=== PATIENT | female | born 1950 | race Caucasian/White ===

== ENCOUNTER 2023-07-12 07:54 | Outpatient (CLI) | payer MEDICARE, OTHER, SELFPAY ==
--- NOTE | 2023-07-12 08:58 | ECG_ITS ---
SEE SCANNED COPY FOR CONFIRMED REPORT MTDD
[2023-07-12 09:14] LABS: Basophils Absolute Auto 0.1 K/mm3 (0.0-0.1); Basophils Percent Auto 0.9 % (0.2-1.2); Eosinophils Absolute Auto 0.1 K/mm3 (0-0.3); Eosinophils Percent Auto 1.8 % (0-4.4); Hematocrit 38.1 % (37.0-47.0); Hemoglobin 11.7 g/dL (12.0-15.0); Immature Granulocyte Absolute 0.02 K/mm3 (0.00-0.031); Immature Granulocyte Percent A 0.3 % (0-0.5); Lymphocytes Absolute Auto 1.93 K/mm3 (0.9-3.2); Lymphocytes Percent Auto 24.7 % (18.3-44.2); Mean Corpuscular HGB Conc 30.7 g/dl (32-36); Mean Corpuscular Hemoglobin 25.8 pg (26-34); Mean Corpuscular Volume 83.9 fl (80-100); Mean Platelet Volume 8.5 fl (7.4-10.4); Monocytes Absolute Auto 0.5 K/mm3 (0.1-0.6); Monocytes Percent Auto 6.4 % (2.6-8.5); Neutrophils Absolute Auto 5.2 K/mm3 (1.3-6.7); Neutrophils Percent Auto 65.9 % (45.5-73.1); Platelet Count Result 354 k/mm3 (150-375); Red Blood Count 4.54 M/mm3 (4.2-5.4); Red Cell Distribution Width 15.3 % (11.5-14.5); White Blood Count 7.8 K/mm3 (4.5-10.0)
[2023-07-12 09:25] LABS: Alanine Aminotransferase 23 U/L (6-35); Albumin Level 4.6 g/dL (3.5-5.1); Alkaline Phosphatase 70 U/L (38-126); Anion Gap 7 mmol/L (4-12); Aspartate Amino Transferase 25 U/L (14-36); Bilirubin,Total 0.3 mg/dL (0.2-1.3); Blood Urea Nitrogen 26 mg/dL (7-17); Calcium 9.8 mg/dL (8.4-10.2); Carbon Dioxide 27 mmol/L (22-30); Chloride 108 mmol/L (98-107); Estimated Glomerular Filt Rate > 60; Glucose 115 mg/dL (65-110); Potassium 4.4 mmol/L (3.4-5.0); Sodium 142 mmol/L (137-145)
[2023-07-12 09:26] LABS: INR 0.9; Prothrombin Time 11.9 Seconds (11.1-14.7)
[2023-07-12 09:28] LABS: Partial Thromboplastin Time 27.7 Seconds (22.3-36.8)
== END 2023-07-12 07:55 | disposition home or self-care (01) ==
LOC: ANHSURGERY 08:01
PROVIDERS: Visit Provider Urology
DX: N81.4 Uterovaginal prolapse, unspecified (principal); I10 Essential (primary) hypertension; Z01.818 Encounter for other preprocedural examination
CPT/HCPCS: 36415; 80053; 85025; 85610; 85730; 86850; 86900; 86901; 93005

== ENCOUNTER 2023-07-24 04:44 | Day surgery (SDC) | payer MEDICARE, OTHER, SELFPAY ==
--- NOTE | 2023-07-12 07:52 | PC.NURSE ---
Report to the Outpatient Waiting Room, entrance under the green pavilion located off [facility], at time __6:00AM on date __07/24/23 . Planned Procedure Time: __7:30AM . Time changes happen often and if your time is changed the preop area will call you the afternoon before. - You and your visitor will be asked to self-screen and do not enter if you have any COVID symptoms. - A mask is optional within the hospital at this time. Patients may have clear liquids (water, carbonated beverages, clear teas, apple juice) until 3 hours prior to surgery with a maximum of 20 ounces. - No food from midnight until time of surgery. Take the following medications with a SIP of water the morning of surgery: ___DILTIAZEM, LEVOTHYROXINE, VENLAFAXINE DO NOT STOP ANY OF YOUR OTHER PRESCRIPTION MEDICATIONS PRIOR TO SURGERY ?EXCEPT THE FOLLOWING Medications to discontinue per physician __HOLD ALL VITAMINS/SUPPLEMENTS AND ASPIRIN 7 DAYS PRE-OP PER DR PIRES Date to take last dose 07/16/23 Please no make-up, nail korean, hairspray, perfume, deodorant, or body powder the day of surgery. No jewelry (including any body piercings) or valuables the day of surgery, leave them at home. Please take a shower or bath the night before, or the morning of, surgery with an antibacterial soap. Wear comfortable, loose fitting clothing. - Jewelry must be removed prior to entering the operating room. Rings and piercings that are not removed may be cut off. - The hospital will not accept responsibility for valuables. - Please leave all valuables, including medications, at home the day of surgery. If you are going home after surgery, a licensed limo driver must drive you home. - NO public transportation without another adult if you receive anesthesia. - We recommend that an adult stay with you for 24 hours following discharge. - We also recommend that you do not drive, make important decision, drink alcoholic beverages, or take any drugs that were not prescribed by your health care provider for at least 24 hours after your discharge time. Follow any additional instructions given to you from your surgeon. If you or anyone in your household have experienced Covid symptoms in the past week, please notify your surgeon or the nurse liaison at the phone number below for possible testing. Telephone instructions given to ____PATIENT and asked if any additional questions and then verbalized understanding. Patient advised to call surgeon office or pre surgery nurse liaison [phone] if any additional questions.
[2023-07-12 08:22] VITALS: BP 131/73; PULSE 72; RESP 16; TEMP 36.9; O2SAT 98; BMI 33.5
--- NOTE | 2023-07-22 19:23 | P.HP_ITS ---
H&P: HPI History of Present Illness Date/Time: 07/22/23 19:23 Chief Complaint: prolapse Narrative: cystocele with uterine prolapse. Stress incontinence on urodynamics Review of Systems Review of Systems: All systems reviewed & are unremarkable except as noted in HPI and below [facility] Social History Social History Smoking status: Never smoker Living arrangements: with family Additional living arrangements comments: HUSB Spiritual care concerns: No Meds Home Medications and Allergies Home Medications Medication Instructions Recorded Confirmed Type ascorbic acid (vitamin C) 1,000 mg 1 g PO DAILY 07/12/23 07/12/23 History capsule aspirin 81 mg tablet,delayed 81 mg PO DAILY 07/12/23 07/12/23 History release cetirizine 10 mg tablet (Zyrtec) 10 mg PO DAILY PRN Sinus Symptoms 07/12/23 07/12/23 History cholecalciferol (vitamin D3) 50 50 mcg PO DAILY 07/12/23 07/12/23 History mcg (2,000 unit) tablet cinnamon bark 500 mg capsule 1,000 mg PO DAILY 07/12/23 07/12/23 History (Cinnamon) diltiazem HCl 120 mg tablet 120 mg PO TID 07/12/23 07/12/23 History furosemide 40 mg tablet 40 mg PO DAILY PRN Edema 07/12/23 07/12/23 History levothyroxine 100 mcg tablet 100 mcg PO QAM 07/12/23 07/12/23 History lisinopril 10 mg tablet 10 mg PO QAM 07/12/23 07/12/23 History magnesium oxide 400 mg PO BID 07/12/23 07/12/23 History metformin 1,000 mg tablet See Rx Instructions .Route .COMPLEX 07/12/23 07/12/23 History multivitamin 1 tablet PO DAILY 07/12/23 07/12/23 History omega 4-vpi-nyk-fish oil 1,200 mg 2,400 cap PO QAM 07/12/23 07/12/23 History (144 mg-216 mg) capsule (Fish Oil) pantoprazole 40 mg tablet,delayed 40 mg PO QAM 07/12/23 07/12/23 History release pravastatin 40 mg tablet 40 mg PO QAM 07/12/23 07/12/23 History triamterene 75 1 tablet PO QAM 07/12/23 07/12/23 History mg-hydrochlorothiazide 50 mg tablet venlafaxine 75 mg capsule,extended 75 mg PO QAM 07/12/23 07/12/23 History release 24 hr Allergies Allergy/AdvReac Type Severity Reaction Status Date / Time hydrocodone AdvReac Vomiting Verified 07/12/23 08:08 propoxyphene AdvReac Vomiting Verified 07/12/23 08:07 [From Geronimo-John] Exam Narrative: no acute distress normal breathing anterior wall at +4. [place] at -1 urethral mobility Assessment and Plan Assessment and plan (1) Uterine prolapse: Code(s): N81.4 - Uterovaginal prolapse, unspecified Status: Acute (2) AL (stress urinary incontinence, female): Code(s): N39.3 - Stress incontinence (female) (male) Status: Acute Plan robotic colpopexy and urethral sling. Understands risks of bleeding, infection, damage to surrounding organs, damage to the urinary tract, vaginal mesh extrusion, urinary tract mesh erosion, obstructive voiding requiring second shamar procedure, hip and leg pain, dyspareunia, prolapse recurrence. Agrees to proceed
[2023-07-24] VITALS (15 sets, daily range): BP systolic 114–134; BP diastolic 58–80; PULSE 62–106; RESP 14–19; TEMP 35.9–36.8; O2SAT 93–97
--- NOTE | 2023-07-24 04:42 | WPDHPUPDATE1 ---
History and Physical Update Update Date/Time: 07/24/23 04:42 History and Physical has been reviewed, including an updated exam of the patient. There are NO changes in the patient's condition. Risks, benefits, and alternatives have been discussed and questions answered. Patient agrees to proceed with procedure.
[2023-07-24] MEDS: LACTATED RINGERS 1,000 ML 30 ML IV CONT ×2 (07:05→10:34)
--- NOTE | 2023-07-24 07:09 | WPDANESEPPF ---
Anes - Initial Pre Proc Eval Procedure: Operation Date: 07/24/23 07:30 Proposed Procedures p Robotic Sacrocolpopexy, Urethral Sling - Sky Cuevas MD s Robotic Assisted Supracervical Hysterectomy with Bilateral Salpingo-oophorectomy - Blair Yeh MD Date/Time: 07/24/23 07:09 Surgeon: Sky Cuevas MD Pre Op Diagnosis: uterine prolapse, stress incontinence Patient Data Age: 72 Gender: F Height: 1.65 m Weight: 91.5 kg Last Vital Signs Temp 36.9 C 07/12/23 08:22 Pulse 72 07/12/23 08:22 Resp 16 07/12/23 08:22 BP 131/73 07/12/23 08:22 Pulse Ox 98 07/12/23 08:22 O2 Del Method Room Air 07/12/23 08:22 Allergies Allergy/AdvReac Type Severity Reaction Status Date / Time hydrocodone AdvReac Vomiting Verified 07/24/23 06:59 propoxyphene AdvReac Vomiting Verified 07/24/23 06:59 [From Geronimo-John] Hmaaxfa-AIB-MfY Reductase AdvReac Joint Pain Verified 07/24/23 07:05 Inhibitor Home Medications Medication Instructions Recorded Confirmed Type ascorbic acid (vitamin C) 1,000 mg 1 g PO DAILY 07/12/23 07/24/23 History capsule aspirin 81 mg tablet,delayed 81 mg PO DAILY 07/12/23 07/24/23 History release cetirizine 10 mg tablet (Zyrtec) 10 mg PO DAILY PRN Sinus Symptoms 07/12/23 07/24/23 History cholecalciferol (vitamin D3) 50 50 mcg PO DAILY 07/12/23 07/24/23 History mcg (2,000 unit) tablet cinnamon bark 500 mg capsule 1,000 mg PO DAILY 07/12/23 07/24/23 History (Cinnamon) diltiazem HCl 120 mg tablet 120 mg PO TID 07/12/23 07/24/23 History furosemide 40 mg tablet 40 mg PO DAILY PRN Edema 07/12/23 07/24/23 History levothyroxine 100 mcg tablet 100 mcg PO QAM 07/12/23 07/24/23 History lisinopril 10 mg tablet 10 mg PO QAM 07/12/23 07/24/23 History magnesium oxide 400 mg PO BID 07/12/23 07/24/23 History metformin 1,000 mg tablet See Rx Instructions .Route .COMPLEX 07/12/23 07/24/23 History multivitamin 1 tablet PO DAILY 07/12/23 07/24/23 History omega 0-ziu-rcz-fish oil 1,200 mg 2,400 cap PO QAM 07/12/23 07/24/23 History (144 mg-216 mg) capsule (Fish Oil) pantoprazole 40 mg tablet,delayed 40 mg PO QAM 07/12/23 07/24/23 History release pravastatin 40 mg tablet 40 mg PO QAM 07/12/23 07/24/23 History triamterene 75 1 tablet PO QAM 07/12/23 07/24/23 History mg-hydrochlorothiazide 50 mg tablet venlafaxine 75 mg capsule,extended 75 mg PO QAM 07/12/23 07/24/23 History release 24 hr Patient hx anesthesia problems: none Family hx anesthesia problems: none Results Review: All pre-operative results and documents have been reviewed as part of the pre-operative evaluation. [facility] Social History Social History Smoking status: Never smoker Living arrangements: with family Additional living arrangements comments: HUSB Spiritual care concerns: No Anes - Eval Final PreProcedure Day of Procedure 07/24/23 07:09 Patient weight: obese Heart: regular rate and rhythm Lungs: clear to auscultation Airway: Mallampati scale class II, special considerations and other (front caps ) Neurological: alert and oriented Last oral intake: >/= 8 hours ASA classification: III Emergent: no Anesthetic plan: proceed Anesthesia type and monitoring: general ETT and standard monitoring Results Review: All pre-operative results and documents have been reviewed as part of the pre-operative evaluation. Informed Consent: The patient's anesthetic plan and its attendant risks and benefits were discussed with the patient/family/POA. Questions were solicited and answers provided to the satisfaction of the patient/family/POA.
--- NOTE | 2023-07-24 07:18 | PM.IMHP ---
H&P: HPI History of Present Illness Date/Time: 07/24/23 07:18 Chief Complaint: Prolapse Narrative: 72 y/o female with symptomatic pelvic organ prolapse. Dr. Cuevas has offered robotic sacral colpopexy. Our plan is for supracervical hysterectomy. Review of Systems Review of Systems: All systems reviewed & are unremarkable except as noted in HPI and below [facility] Social History Social History Smoking status: Never smoker Living arrangements: with family Additional living arrangements comments: HUSB Spiritual care concerns: No Meds Home Medications and Allergies Home Medications Medication Instructions Recorded Confirmed Type ascorbic acid (vitamin C) 1,000 mg 1 g PO DAILY 07/12/23 07/24/23 History capsule aspirin 81 mg tablet,delayed 81 mg PO DAILY 07/12/23 07/24/23 History release cetirizine 10 mg tablet (Zyrtec) 10 mg PO DAILY PRN Sinus Symptoms 07/12/23 07/24/23 History cholecalciferol (vitamin D3) 50 50 mcg PO DAILY 07/12/23 07/24/23 History mcg (2,000 unit) tablet cinnamon bark 500 mg capsule 1,000 mg PO DAILY 07/12/23 07/24/23 History (Cinnamon) diltiazem HCl 120 mg tablet 120 mg PO TID 07/12/23 07/24/23 History furosemide 40 mg tablet 40 mg PO DAILY PRN Edema 07/12/23 07/24/23 History levothyroxine 100 mcg tablet 100 mcg PO QAM 07/12/23 07/24/23 History lisinopril 10 mg tablet 10 mg PO QAM 07/12/23 07/24/23 History magnesium oxide 400 mg PO BID 07/12/23 07/24/23 History metformin 1,000 mg tablet See Rx Instructions .Route .COMPLEX 07/12/23 07/24/23 History multivitamin 1 tablet PO DAILY 07/12/23 07/24/23 History omega 9-eeq-hdz-fish oil 1,200 mg 2,400 cap PO QAM 07/12/23 07/24/23 History (144 mg-216 mg) capsule (Fish Oil) pantoprazole 40 mg tablet,delayed 40 mg PO QAM 07/12/23 07/24/23 History release pravastatin 40 mg tablet 40 mg PO QAM 07/12/23 07/24/23 History triamterene 75 1 tablet PO QAM 07/12/23 07/24/23 History mg-hydrochlorothiazide 50 mg tablet venlafaxine 75 mg capsule,extended 75 mg PO QAM 07/12/23 07/24/23 History release 24 hr Allergies Allergy/AdvReac Type Severity Reaction Status Date / Time hydrocodone AdvReac Vomiting Verified 07/24/23 06:59 propoxyphene AdvReac Vomiting Verified 07/24/23 06:59 [From Darvocet-N] Xudcerv-NFG-CjK Reductase AdvReac Joint Pain Verified 07/24/23 07:05 Inhibitor Exam Const: Orientation/consciousness: patient oriented x3 Other: Well-developed, well-nourished female in no acute distress. Neck: Thyroid: thyroid normal Lymphatic: no lymphadenopathy noted (in neck, axilla or inguinal nodes) Resp: Effort & Inspection: normal respiratory effort Auscultation: clear to auscultation bilaterally Cardio: Rate: regular rate Rhythm: regular rhythm Heart sounds: S1 normal heart sound present and S2 normal heart sound present GI: Other: ABD: Soft, nontender, nondistended. No guarding or rebound tenderness. No hepatosplenomegaly. : General: Yes no CVA tenderness Other: External genitalia: normal female hair distribution, without lesion. Urethral meatus: no lesion, non prolapsed. Bladder: no mass, nontender Vagina: atrophic, with cystocele and uterine prolapse Cervix: no lesion or discharge. Uterus: small, anteverted, freely mobile, nontender Adnexa: no mass or tenderness. Anus/perineum: no lesions, nontender Back/Spine/Pelvis: Back: no CVA tenderness Skin: General skin exam: normal color and no rashes or lesions noted Neuro: General: patient oriented x3 Extrem: Other: Extremities: nontender with no edema Psych: Mental Status: mental status grossly normal Affect: normal affect Assessment and Plan Assessment and plan (1) AL (stress urinary incontinence, female): Code(s): N39.3 - Stress incontinence (female) (male) Status: Acute Assessment and Plan: A: Symptomatic pelvic organ prolapse. P: A
--- NOTE | 2023-07-24 07:21 | WPDHPUPDATE1 ---
History and Physical Update Update Date/Time: 07/24/23 07:21 History and Physical has been reviewed, including an updated exam of the patient. There are NO changes in the patient's condition. Risks, benefits, and alternatives have been discussed and questions answered. Patient agrees to proceed with procedure.
[2023-07-24] MEDS: metroNIDAZOLE 500 MG/ISO 100ML 500 MG/100 ML BAG 100 MG IVPB ×2 (07:27→16:01)
[2023-07-24] MEDS: ceFAZolin 2 GM/D5W 50 ML 2 GM/50 ML BAG IVPB (07:27)
[2023-07-24 07:33] LABS: Glucose Point of Care 119 mg/dl (65-105)
--- NOTE | 2023-07-24 08:26 | W.PM.PROC2 ---
Procedure Note - Detailed Date of Procedure 07/24/23 Pre-op Diagnosis Symptomatic pelvic organ prolapse Post-op Diagnosis Same Procedure Performed Robotic assisted supracervical hysterectomy with bilateral salpingo-oophorectomy Surgeon Blair Yeh MD Anesthesia General Findings Uterine prolapse and cystocele Description of Procedure The patient was taken to the operating room where general endotracheal anesthesia was administered. She was prepared and draped in the usual sterile fashion in the dorsal lithotomy position. The bladder was drained with Perrin catheter. The cervix was visualized and the anterior lip was grasped using a single-tooth tenaculum. An acorn uterine manipulator was placed. Dr. Cuevas placed the laparoscopic ports and the patient-side cart was docked. I assumed the console. The ureters were visualized bilaterally. The round ligament on the right was divided. The infundibulopelvic ligament was divided. The broad ligament was divided, skeletonizing the uterine artery on the right. The bladder was reflected away. The left side was similarly dissected. The uterus was amputated from the cervix. The pedicles were inspected, and hemostasis was excellent. Dr. Cuevas then proceeded with his portion of the procedure, to be documented separately. I was present and scrubbed through my entire portion of the procedure. Implants None Estimated Blood Loss 5 Drains Yes (perrin) Packing No Pathology Yes (Uterus, bilateral tubes and ovaries) Complications None Condition Stable
[2023-07-24] MEDS: BUPIVACAINE/EPINEPHRINE 0.5% 10 ML VIAL 40 ML INFILTRATE (08:32)
--- NOTE | 2023-07-24 10:26 | W.PM.PROC2 ---
Procedure Note - Detailed Date of Procedure 07/24/23 Pre-op Diagnosis uterine prolapse, stress incontinence Post-op Diagnosis Same Procedure Performed Robotic assisted laparoscopic sacral colpopexy Urethral sling Cystoscopy Surgeon Sky Cuevas MD Anesthesia General Indications A woman with uterine prolapse as well as stress incontinence. She desires surgical correction. She is here for the above. She understands risks of bleeding, infection, diskitis, damage to surrounding organs, bowel injury, bowel obstruction, persistent or recurrent prolapse, persistent or recurrent incontinence, mesh related complications including exposure and extrusion, postoperative voiding dysfunction including incontinence and retention, need for ancillary procedures, dyspareunia, recurrence of prolapse, and other perioperative intraoperative postoperative complications. She agrees to proceed. Findings See below Description of Procedure She was correctly identified. Informed consent obtained. She from the operating room. She was given general anesthesia. She was given appropriate perioperative antibiotics. She was placed a low lithotomy position. Pressure points were padded. A time-out performed. I marked out the skin 3 fingerbreadths cephalad to the umbilicus. I anesthetized the skin. I incised the skin. I dissected down to the fascia. I grasped the fascia with Kasia clamps. I entered the fascia sharply in a Arcos type technique. I placed sutures for later fascial closure. I placed a midline trocar. I examined the abdomen. There is no sign of any injury. Under direct vision I placed 2 additional trocars in the right upper quadrant and 2 additional trocars the left upper quadrant. She was placed in steep Trendelenburg. The robot was docked. Her head boys tennis coach completed their portion of the procedure. Please see that operative report for details. I then sat at the console. The Sizer in the vagina created plane on the anterior and posterior vaginal wall. I took great care not to injure the vagina, bladder, or rectum. I introduced the mesh into the abdomen. I sewed the anterior leaflet of mesh on the anterior vaginal wall. I sewed the posterior leaflet of mesh on the posterior vaginal wall. This was done with several sutures of 2 0 [place]-Nabeel. I reflected the colon laterally. she had a thick fat pad in the retroperitoneum on top of the sacrum. I opened the posterior peritoneum over the sacral promontory. I carried this into the cul-de-sac. I freed up the edges for later retroperitonealization. I located the anterior longitudinal ligament the sacrum. I cleaned off all fatty tissues. I then tensioned my mesh appropriately. I pushed the cervix all the way up to the sacral promontory. There was very little bridge. I did a vaginal exam the bedside. I assured prolapse reduction without undue tension. I then sewed the proximal leaflet of mesh onto the anterior longitudinal ligament of the sacrum with several sutures of 2 0 [place]-Nabeel. I then used a 2 0 Monocryl to completely and meticulously retroperitonealized all mesh. I allowed the colon to go back to its normal anatomic location. There is no sign of any impingement. The specimen was then removed. All ports removed. Fascia was tied down. Skin was closed with Monocryl and surgical glue. She was repositioned and prepped for urethral sling. I marked out the inner thigh incisions. I anesthetized the skin and made the incisions. I then anesthetized the anterior vaginal wall at the mid urethra. I made a 1 cm incision. I dissected out laterally taking great care not to injure the refilled vaginal wall. I passed the helical trocars. I did this 1st on the left and then on the right. This was done from the thigh incision towards the vaginal incision. Sling was connected to the trocars and brought out the thigh incision. I tensioned the sling appropriately. I cut and the plastic sheaths. I
--- NOTE | 2023-07-24 10:42 | SUR.PHASEI ---
Patient BGL 223. Dr De La Torre notified by this RN. No new orders at this time.
[2023-07-24 10:51] LABS: Glucose Point of Care 223 mg/dl (65-105)
--- NOTE | 2023-07-24 11:50 | PC.NURSE ---
This patient, Keke Batista, was received from PACU per bed to room 289. Patient/family oriented to unit policies and routines
[2023-07-24] MEDS: ceFAZolin 1 GM/NS 50 ML 1 GM/50 ML BAG IVPB ×2 (15:24→23:25)
[2023-07-24] MEDS: SODIUM CHLORIDE 0.9% IV 250 ML 125 ML (16:01)
[2023-07-24 17:19] LABS: Glucose Point of Care 178 mg/dl (65-105)
[2023-07-24] MEDS: metFORMIN HCL 500 MG TABLET 1000 MG BY MOUTH (17:24)
[2023-07-24 21:00] LABS: Glucose Point of Care 236 mg/dl (65-105)
[2023-07-24] MEDS: INSULIN ASPART (*BKC) 100 UNITS/ML SUB-Q (21:03)
[2023-07-24] MEDS: dilTIAZem HCL 60 MG TABLET 120 MG PO (23:25)
[2023-07-25] MEDS: metroNIDAZOLE 500 MG/ISO 100ML 500 MG/100 ML BAG 100 MG IVPB (00:05)
[2023-07-25 05:10] VITALS: BP 114/65; PULSE 88; RESP 18; TEMP 36.6
[2023-07-25] MEDS: ENOXAPARIN 30 MG/0.3 ML SYRINGE SUB-Q (07:12)
[2023-07-25] MEDS: metFORMIN HCL 500 MG TABLET BY MOUTH (07:13)
[2023-07-25] MEDS: lisinopriL 10 MG TABLET PO (07:13)
[2023-07-25] MEDS: LEVOTHYROXINE SODIUM 100 MCG TABLET PO (07:13)
[2023-07-25] MEDS: TRIAMTERENE 37.5 MG/HCTZ 25 MG (MAXZIDE) TABLET 2 TAB PO (07:13)
[2023-07-25] MEDS: VENLAFAXINE HCL XR 75 MG CAP.ER.24H PO (07:14)
[2023-07-25] MEDS: PANTOPRAZOLE 40 MG TABLET PO (07:14)
[2023-07-25] MEDS: DOCUSATE SODIUM 100 MG CAPSULE PO (07:14)
[2023-07-25] MEDS: dilTIAZem HCL 60 MG TABLET 120 MG PO (07:14)
[2023-07-25] MEDS: metFORMIN HCL 500 MG TABLET 1000 MG BY MOUTH (07:20)
[2023-07-25 07:27] LABS: Glucose Point of Care 121 mg/dl (65-105)
[2023-07-25 08:00] VITALS: BP 126/54; PULSE 96; RESP 16; TEMP 37.1; O2SAT 97
--- NOTE | 2023-07-25 08:34 | WPDANESPN ---
Anes - Prog Note Post-Op Date/Time: 07/25/23 08:34 Cardiovascular status: normal Respiratory status: normal Airway patency: baseline Mental status: baseline Post-Op hydration status: normal Vital Signs: Last Vital Signs Temp 36.6 C 07/25/23 05:10 Pulse 88 07/25/23 05:10 Resp 18 07/25/23 05:10 BP 114/65 07/25/23 05:10 Pulse Ox 96 07/24/23 16:00 O2 Del Method Room Air 07/25/23 05:10 O2 Flow Rate 1 07/24/23 13:20 Pain Score (VAS): 0 I/O: Intake & Output 07/24/23 07/25/23 07/25/23 23:59 07:59 15:59 Intake Total 150 650 Output Total 900 800 Balance -750 -150 07/24/23 07/24/23 07/24/23 10:37 17:16 20:55 POC Capillary Glucose 223 H 178 H 236 H 07/25/23 07:25 POC Capillary Glucose 121 H Post-procedural complaints: none Patient Feedback: Patient satisfied with anesthetic care.
--- NOTE | 2023-07-25 08:58 | PM.GYNPNOP ---
[employer] - A/P Assessment and plan (1) AL (stress urinary incontinence, female): Code(s): N39.3 - Stress incontinence (female) (male) Status: Acute Assessment and Plan: A: POD#1, s/p robotic supracervical hysterectomy with BSO, sacral colpopexy and TOT. Doing great. Ready to come home. P: Home to f/u in the office with both Dr. Cuevas and me. (2) Uterine prolapse: Code(s): N81.4 - Uterovaginal prolapse, unspecified Status: Acute Postoperative Procedures: Procedures Operation Date: 07/24/23 07:30 Actual Procedure Side Surgeon p Robotic Sacrocolpopexy, Urethral Sling Sky Cuevas MD s Robotic Assisted Supracervical Hysterectomy with Bilateral Salpingo-oophorectomy Bilateral Blair Yeh MD Postoperative day: 1 Time Spent With Patient Time with patient: less than 15 minutes [employer]- PN:Subj Post-Op Subjective Date/time seen: 07/25/23 08:58 Interval history: Pain OK. Tolerating diet. Would like to go home. Exam Narrative: AVSS I/O OK ABD soft, nontender. Incisions c/d/i. EXT nontender [employer] - PN: Obj Data Vital Signs Vital Signs: Vital Signs - 24 hr 07/24/23 10:34 07/24/23 10:45 07/24/23 11:04 Temperature 36.2 C L Pulse Rate 88 83 Respiratory Rate 14 19 Blood Pressure 115/61 114/63 Pulse Oximetry 95 94 94 Oxygen Delivery Simple Face Mask Simple Face Mask Simple Face Mask Oxygen Flow Rate 10 10 10 07/24/23 11:00 07/24/23 11:15 07/24/23 11:20 Temperature Pulse Rate 84 84 Respiratory Rate 18 19 Blood Pressure 122/62 126/66 Pulse Oximetry 94 96 95 Oxygen Delivery Simple Face Mask Simple Face Mask Room Air Oxygen Flow Rate 10 10 07/24/23 11:23 07/24/23 11:30 07/24/23 11:42 Temperature 36.3 C L Pulse Rate 83 86 Respiratory Rate 18 18 Blood Pressure 125/63 127/62 Pulse Oximetry 93 93 95 Oxygen Delivery Nasal Cannula Nasal Cannula Nasal Cannula Oxygen Flow Rate 2 3 3 07/24/23 11:55 07/24/23 11:55 07/24/23 13:20 Temperature 36.4 C Pulse Rate 85 83 Respiratory Rate 14 14 16 Blood Pressure 122/58 L Pulse Oximetry 93 93 95 Oxygen Delivery Nasal Cannula Oxygen Flow Rate 2 07/24/23 13:20 07/24/23 16:00 07/24/23 16:00 Temperature 35.9 C L Pulse Rate 83 94 Respiratory Rate 16 16 16 Blood Pressure 124/60 Pulse Oximetry 95 96 96 Oxygen Delivery Nasal Cannula Room Air Oxygen Flow Rate 1 07/24/23 21:05 07/24/23 21:05 07/24/23 23:35 Temperature 36.8 C 36.8 C Pulse Rate 62 106 H Respiratory Rate 18 18 Blood Pressure 125/80 115/63 Pulse Oximetry Oxygen Delivery Room Air Oxygen Flow Rate 07/24/23 23:35 07/25/23 05:10 07/25/23 05:10 Temperature 36.6 C Pulse Rate 88 Respiratory Rate 18 Blood Pressure 114/65 Pulse Oximetry Oxygen Delivery Room Air Room Air Oxygen Flow Rate 07/25/23 08:00 Temperature 37.1 C Pulse Rate 96 Respiratory Rate 16 Blood Pressure 126/54 L Pulse Oximetry 97 Oxygen Delivery Oxygen Flow Rate Intake/Output Intake/Output: Intake & Output 07/22/23 07/23/23 07/24/23 07/25/23 23:59 23:59 23:59 23:59 Intake Total 650 650 Output Total 1010 800 Balance -360 -150 Meds/Results Medications: Active Medications Generic Name Dose Route Start Last Admin Trade Name Freq PRN Reason Stop Dose Admin Acetaminophen 650 mg 07/24/23 11:45 Acetaminophen 325 Mg Tablet PO Q4H PRN Mild Pain (1-3) or Fever Cephalexin HCl 500 mg 07/25/23 13:00 Cephalexin 500 Mg Capsule PO QID CASSIE Dextrose 12.5 gm 07/24/23 11:45 Dextrose 50% 25 Gm/50 Ml Syringe IV PUSH PRN PRN Hypoglycemia Protocol Diltiazem HCl 120 mg 07/24/23 14:00 07/25/23 07:14 Diltiazem Hcl 60 Mg Tablet PO 120 mg Q8HR CASSIE Administration Diphenhydramine HCl 25 mg 07/24/23 11:45 Diphenhydramine Hcl Inj 50 Mg/Ml Vial IV PUSH Q6H PRN Itching Docusate Sodium 100 mg 07/24/23 11:45 06
--- NOTE | 2023-07-25 09:01 | PM.DS ---
DS: Admitting Diagnosis Discharge Date 07/25/23 Admitting Diagnosis Pelvic organ prolapse Stress urinary incontinence DS: Discharge Diagnosis Discharge Diagnosis (1) AL (stress urinary incontinence, female): Code(s): N39.3 - Stress incontinence (female) (male) Status: Acute (2) Uterine prolapse: Code(s): N81.4 - Uterovaginal prolapse, unspecified Status: Acute DS: Summary Hospital Course Hospital Course: Admitted on date of scheduled surgery. She did well postop and went home on POD1. Time Spent with Patient Time attestation: Total time spent providing and/or coordinating discharge services: DS: Data Data Completed and Pending Pending studies at discharge: Pending at discharge 07/24/23 08:01 Surgical [PTH] Routine Labs on day of discharge: Labs from last 24 hours 07/25/23 07/24/23 07/24/23 07:25 20:55 17:16 POC Capillary Glucose 121 H 236 H 178 H 07/24/23 10:37 POC Capillary Glucose 223 H Discharge Plan Discharge Patient Disposition: Home, Self-Care Discharge Instructions: No lifting >20lb, exercise for 6 weeks No tub bath or pool for 2 weeks no intercourse 6 weeks Patient Instructions: Hysterectomy (DC), Bladder Sling for Women (DC) Stand Alone Forms: General Discharge Instructions Follow-up/Referrals: Sky Cuevas MD [Physician] - (6 weeks) Discharge Medications: New tramadol 50 mg tablet 50 mg PO Q6H PRN (Reason: pain) Qty: 20 0RF docusate sodium [Colace] 100 mg capsule 100 mg PO BID Qty: 30 0RF Continued multivitamin Tablet 1 tablet PO DAILY furosemide 40 mg Tablet 40 mg PO DAILY PRN (Reason: Edema) venlafaxine 75 mg capsule,extended release 24hr 75 mg PO QAM cetirizine [Zyrtec] 10 mg Tablet 10 mg PO DAILY PRN (Reason: Sinus Symptoms) pravastatin 40 mg tablet 40 mg PO QAM levothyroxine 100 mcg tablet 100 mcg PO QAM diltiazem HCl 120 mg tablet 120 mg PO TID pantoprazole 40 mg tablet,delayed release (DR/EC) 40 mg PO QAM metformin 1,000 mg tablet See Rx Instructions .ROUTE .COMPLEX Rx Instructions: 1000MG AM AND PM, 500MG AT NOON lisinopril 10 mg tablet 10 mg PO QAM triamterene-hydrochlorothiazid 75-50 mg tablet 1 tablet PO QAM cinnamon bark [Cinnamon] 500 mg Capsule 1,000 mg PO DAILY cholecalciferol (vitamin D3) 50 mcg (2,000 unit) Tablet 50 mcg PO DAILY omega [id number] oil [Fish Oil] 1,200 (144-216) mg Capsule 2,400 cap PO QAM magnesium oxide 400 mg magnesium Capsule 400 mg PO BID ascorbic acid (vitamin C) 1,000 mg Capsule 1 g PO DAILY Held aspirin 81 mg Tablet,Delayed Release (Dr/Ec) 81 mg PO DAILY Hold Instructions: Resume on 07/26/23.
== END 2023-07-25 11:02 | disposition home or self-care (01) ==
LOC: ANHSURGERY 05:55 → ANHOB2 11:48
PROVIDERS: Obstetrics & Gynecology; Visit Provider Urology
PROC: (CPT 57425; principal; 2023-07-24 07:30)
PROC: 0UT94ZZ Resection of Uterus, Percutaneous Endoscopic Approach (ICD-10-PCS; CPT 57425; 2023-07-24 07:30)
DX: N81.4 Uterovaginal prolapse, unspecified (principal); N39.3 Stress incontinence (female) (male); N84.0 Polyp of corpus uteri; N83.8 Other noninflammatory disorders of ovary, fallopian tube and broad ligament; Z79.82 Long term (current) use of aspirin; Z79.84 Long term (current) use of oral hypoglycemic drugs; E66.9 Obesity, unspecified; Z68.33 Body mass index [BMI] 33.0-33.9, adult
CPT/HCPCS: 57425; 57288; 58542; S2900 ×2; 82948; 88307; 99199; A9270; C1758; C1769; C1771; C1781; J0360; J0690; J1100; J1170; J1200; J1596; J1650; J1815; J1836; J2405; J2704; J3010; J7030; J7050; J7120